=== PATIENT | male | born 1945 | race Caucasian/White ===

== ENCOUNTER → 2018-09-28 | Outpatient (CLI) | payer MEDICARE, OTHER ==
[~2018-09-28] MED LIST: ASPI-630 PO; DUTA0.5C PO; GABA-585 PO; GLUC1TAB71 PO; LANS15CA78 PO; LORA5TAB7 PO; MELO7.5T29 PO; PRIM1POW MC
--- NOTE | 2018-09-28 15:04 | RAD ---
CT of the chest without contrast, compared to similar study dated November 21, 2013 for fatigue for over 3 years, progressively worsening. Patient states that they experienced virus 3 years ago which lasted for 6 months, and that they have never fully recovered. Shortness of breath. TECHNIQUE: Contiguous helical 3 mm axial images are obtained from the thoracic inlet to the base of the diaphragm. IV contrast was withheld. Sagittal and coronal reformations are evaluated. FINDINGS: Extensive multifocal coronary artery calcifications are seen, most prominent in the proximal LAD. No suspicious mediastinal, hilar, or axillary lymphadenopathy is seen. Visualized upper abdominal organs are grossly unremarkable, though evaluation is limited by lack of IV contrast. No suspicious osseous abnormalities are evident. There are 2 subcentimeter nodules in the right lung which are stable and unchanged from the prior exam consistent with antecedent granulomatous disease. There is a new 3 mm nodule in the left lower lung seen on axial image #52, which was not definitely seen on the prior study, however its nonvisualization was likely due to its small size and volume averaging. Benignity is suspected especially given other benign stable pulmonary nodules. Several pleural-based nodular abnormalities are present in both lower lobes, left greater than right, and likely reflect subsegmental atelectasis. No suspicious nodules or masses are seen. No definite pneumonic infiltrates are seen. No pleural effusion or pneumothorax. Central airways are patent and grossly unremarkable. IMPRESSION: 1. No definite acute cardiopulmonary abnormality. Several small peripheral nodular pleural-based densities seen in both lower lobes are most consistent with subsegmental atelectasis, and less likely inflammatory or infectious. 2. Changes of antecedent granulomatous disease. There is a 3 mm nodule in the left lower lobe on axial image #52, which was not definitely visualized on the prior study, but nonetheless is likely benign. 3. Bulky calcified atherosclerosis of the coronary arteries, most notable involving the LAD. Electronically signed by: Main Rebollar MD (09/28/2018 3:01 PM) [id number]
== END | disposition home or self-care (01) ==
LOC: CT 10:24
PROVIDERS: ATTEND Nurse Practitioner Family
DX: I25.10 Atherosclerotic heart disease of native coronary artery without angina pectoris (principal); D71 Functional disorders of polymorphonuclear neutrophils; R91.1 Solitary pulmonary nodule
CPT/HCPCS: 71250

== ENCOUNTER → 2020-01-18 | Outpatient (CLI) | payer MEDICARE, OTHER ==
--- NOTE | 2020-01-18 14:14 | RAD ---
EXAM: DUAL ENERGY X-RAY ABSORPTIOMETRY (DEXA). HISTORY: Male age 70 or older. FINDINGS: The lowest measured T-score is -1.9 in the right femoral neck, based on a bone mineral density of 0.750 g/cm^2. Refer to the worksheets for full detail. No comparison examinations are available. IMPRESSION: Low bone mass. Bone mineral density yields a T-score between -1.0 and -2.5. Fracture risk is increased. FRAX was not calculated. METHODOLOGY: Dual energy x-ray absorptiometry was performed to measure bone mineral density. The following analysis is based on the 2019 Official Positions of the International Society for Clinical Densitometry: Measurements of the hips and the average of L1-L4 are preferred. When the spine and/or hip cannot be feasibly measured or interpreted, or in the setting of hyperparathyroidism, distal radial bone mineral density may be measured. The lumbar spine T-score is based on the average bone mineral density of L1-L4. In the setting of artifact or anatomic abnormality, some lumbar levels may be excluded, and the remaining levels used for calculation. A single lumbar level is not used for diagnosis, and if only a single level is available for assessment, another anatomic site will be used to assign a diagnosis. The hip T-score is based on the bone mineral density measurement of the femoral neck or total proximal femur of either side, whichever is lowest. Bilateral mean values are not used for diagnosis. The forearm T-score is derived from 33% of the distal radius of the nondominant forearm. For postmenopausal and perimenopausal women, and men age 50 or older, of all ethnic groups, T-scores are calculated through comparison of the current measurement with the NHANES III database standard for females aged 20-29 years. The lowest T-score of the evaluated anatomic sites is used to assign a diagnosis based on the World Health Organization densitometric classification. In premenopausal females and males younger than age 50, a Z-score is calculated based on population specific reference data for patient sex and self-reported ethnicity. Electronically signed by: Faizan Spaulding MD (01/18/2020 2:11 PM) [facility]
== END ==
LOC: DXRAD 12:57
PROVIDERS: ATTEND Specialist
DX: M85.89 Other specified disorders of bone density and structure, multiple sites (principal)
CPT/HCPCS: 77080

== ENCOUNTER 2020-11-07 06:54 | Inpatient (IN) | payer MEDICARE, OTHER ==
[2020-11-07] VITALS (8 sets, daily range): BP systolic 74–158; BP diastolic 49–81
[~2020-11-07] VITALS: Ht 180.3 cm; Wt 67.7 kg
[2020-11-07] MEDS ORDERED: ZOLP5TAB5 PO (07:43)
[2020-11-07] MEDS ORDERED: CRESTOR20 MG PO (07:43)
[2020-11-07] MEDS ORDERED: DONE5TAB7 PO (07:43)
[2020-11-07] MEDS ORDERED: TRAM50TA PO (07:43)
[2020-11-07] MEDS ORDERED: VITA1TAB31 PO (07:43)
[2020-11-07] MEDS ORDERED: GABA-586 PO (07:43)
[2020-11-07] MEDS ORDERED: TAMS0.4C97 PO (07:43)
[2020-11-07] MEDS ORDERED: MECO10005 PO (07:43)
[2020-11-07] MEDS ORDERED: ALEN70TA71 PO (07:43)
[2020-11-07] MEDS ORDERED: IV 1/2 NORMAL SALINE 1,000 ML IV SCH (07:45)
[2020-11-07 08:00] LABS: BASO % 0 % (0-3); EOS % 1 % (0-3); HEMATOCRIT 42.3 % (39.0-53.0); HEMOGLOBIN 14.3 g/dL (13.0-17.5); LYMPH # 0.2 x10^3/uL (1.0-4.8); LYMPH % 5 % (24-48); MEAN CORPUSCULAR HEMOGLOBIN 33 pg (25-35); MEAN CORPUSCULAR HGB CONC 34 g/dL (31-37); MEAN CORPUSCULAR VOLUME 96 fL (79-100); MONO # 0.1 x10^3/uL (0.0-1.1); MONO % 3 % (0-9); NEUT # 3.2 x10^3uL (1.8-7.7); NEUT % 92 % (31-73); PLATELET COUNT 145 x10^3/uL (140-400); RED BLOOD COUNT 4.42 x10^6/uL (4.30-5.70); RED CELL DISTRIBUTION WIDTH 13.3 % (11.5-14.5); WHITE BLOOD COUNT 3.5 x10^3/uL (4.0-11.0)
[2020-11-07 08:04] LABS: ALBUMIN 1.8 g/dL (3.4-5.0); ALBUMIN/GLOBULIN RATIO 0.4 (1.0-1.7); CALCIUM 8.2 mg/dL (8.5-10.1); CREATININE 0.9 mg/dL (0.7-1.3); GFR 82.5; POTASSIUM 4.4 mmol/L (3.5-5.1); TOTAL BILIRUBIN 0.6 mg/dL (0.2-1.0); TOTAL PROTEIN 6.3 g/dL (6.4-8.2)
--- NOTE | 2020-11-07 08:05 | NUR ---
NURSING NOTE ADMIT PT ADMIT TO ROOM 105. PT C/O WEAKNESS, FALLS, DECREASED APPETITE. PT STATES HE HAS HAD SOME CONFUSION THIS AM, THINKING HE HAD BREAKFAST BUT HE HAS NOT. PT HAS FELL X3 TIMES THIS AM SINCE 2 AM. ALSO FELL ON THURSDAY, EMS CAME TO EVALUATE HIM AND HE WAS UP FINE BY THE TIME THEY GOT THERE SO THEY DID NOT TAKE HIM IN. PT STATES HE STARTED TEGRETOL FOR NEUROPATHY AND TOOK IT FOR 3 DAYS AND ALL THESE SYMPTOMS STARTED. PT ALSO WAS CONSTIPATED AND WENT TO SEE DR BROOKS LAST WEEK AND WAS GIVEN MAG CITRATE AND NOW HAS BEEN HAVING SEVERAL BM'S SINCE. LBM 11/07/20. PT AT BEDSIDE DURING ADMISSION. DR BROOKS NOTIFIED OF ARRIVAL. SHAINA BECK.
[2020-11-07 09:18] LABS: % BANDS 33 % (0-9); % EOS 1 % (0-5); % LYMPHS 3 % (24-48); % METAS 4 % (0-0); % MONOS 3 % (0-10); % MYELOS 2 % (0-0); % SEGS 54 % (35-66)
[2020-11-07 09:19] LABS: PLT ESTIMATE ADEQUATE (ADEQUATE)
[2020-11-07] MEDS ORDERED: IV NORMAL SALINE 500ML 500 ML IV ONE (09:30)
[2020-11-07] MEDS: IV NORMAL SALINE 1,000ML 1,000 ML IV SCH ×2 (09:30→20:19)
[2020-11-07] MEDS ORDERED: ZOLPIDEM 5 MG TABLET. PO PRN (10:15)
[2020-11-07] MEDS ORDERED: traMADol 50 MG TABLET PO PRN ×2 (10:15→10:30)
[2020-11-07] MEDS: TAMSULOSIN 0.4 MG CAP.ER.24H. PO SCH (10:30)
[2020-11-07] MEDS ORDERED: VANCOMYCIN PER PHARMACY MC PRN (10:30)
--- NOTE | 2020-11-07 10:39 | RAD ---
EXAM: Chest, 2 views. HISTORY: Short of breath. Cough. COMPARISON: 09/28/2018 FINDINGS: 2 views of the chest are obtained. There is a masslike consolidation of the left upper lobe with sparing of the left lung apex. No pleural effusion or pneumothorax is seen. The heart is normal in size. There are healed rib fractures. IMPRESSION: Masslike consolidation of the left upper lobe. This can be better assessed with a CT. Electronically signed by: Monserrat Eduardo MD (11/07/2020 10:36 AM) [id number]
--- NOTE | 2020-11-07 10:49 | RAD ---
EXAM: Head CT without contrast. HISTORY: Fall. Weakness. TECHNIQUE: Computed tomographic images of the head were obtained without contrast. *One or more of the following individualized dose reduction techniques were utilized for this examina tion: 1. Automated exposure control. 2. Adjustment of the mA and/or kV according to patient size. 3. Use of iterative reconstruction technique. COMPARISON: None. FINDINGS: There is no acute or subacute extra-axial or intraparenchymal hemorrhage. There is no mass effect or midline shift. There is no hydrocephalus. There are areas of decreased attenuation within the cerebral white matter, nonspecific and likely rel ated to chronic small vessel disease. There is cerebral volume loss. There is a chronic appearing wit hin the left thalamus. The visualized portions of the orbits, paranasal sinuses and mastoid air cells are unremarkable. No s uspicious calvarial lesion is seen. IMPRESSION: 1. No acute intracranial finding. Note is made that MRI is more sensitive for acute infarction. 2. Bilateral cerebral white matter changes, likely due to chronic small vessel disease. 3. 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 Electronically signed by: Monserrat Eduardo MD (11/07/2020 10:46 AM) [id number]
--- NOTE | 2020-11-07 10:57 | RAD ---
EXAM: Abdomen and pelvis CT without intravenous contrast. HISTORY: Pain. TECHNIQUE: Computed tomographic images of the abdomen and pelvis were obtained without contrast. Mult iplanar reformatting was performed. *One or more of the following individualized dose reduction techniques were utilized for this examina tion: 1. Automated exposure control. 2. Adjustment of the mA and/or kV according to patient size. 3. Use of iterative reconstruction technique. COMPARISON: None. FINDINGS: Evaluation of the lower thorax demonstrates partial consolidation of the left lower lobe, p artially included on the [id number]. There is groundglass infiltrate within the left lower lobe th ere is left posterior dependent atelectasis. There are few tiny pleural-based and peripheral left low er lobe pulmonary nodules measuring up to 3 mm. There is a 2 mm nodule along the right pleural fissur e which is likely a benign fissural lymph node. There is a small hiatal hernia. No hepatic lesion is seen. The gallbladder is unremarkable. There is a pancreatic calcification which may be due to the sequela of prior pancreatitis. There is no acute pancreatitis. The spleen is unrem arkable. The adrenal glands are unremarkable. There is a 4 mm hypodense lesion along the lateral mid zone of the left kidney, possibly a hemorrhagic cyst. There is no gwen hydronephrosis. The appendix is likely absent. There is mild circumferential wall thickening involving segments of co william likely due to peristalsis. There is no convincing colitis. There is distal colonic diverticulosis . There is no diverticulitis. The bladder is unremarkable. The prostate is mildly enlarged. There is aortic and aortic branch vessel atherosclerosis. There is no lymphadenopathy. There are dege nerative changes involving the spine, primarily at L4-L5. IMPRESSION: 1. Partial left lower lobe consolidation, partially included on the [id number]. Correlate with a c hest radiograph or CT. 2. Colonic diverticulosis. 3. Tiny hyperdense lesion along the lateral left kidney, possibly a hemorrhagic cyst. Renal sonograph y may be helpful to exclude a solid lesion. 4. Tiny left lower lobe peripheral and pleural-based nodular opacities measuring up to 3 mm. Follow-u p can be performed in one year if there are risk factors for pulmonary neoplasm. Electronically signed by: Monserrat Eduardo MD (11/07/2020 10:54 AM) [id number]
[2020-11-07] MEDS ORDERED: VANCOMYCIN 1.75 GM in IV NORMAL SALINE 500ML 500 ML IV ONE (11:00)
[2020-11-07] MEDS: IPRATRPIUM/ALBUTEROL 0.5/2.5MG 3 ML NEBU. NEB SCH ×3 (12:30→20:17)
[2020-11-07 12:34] LABS: CLARITY,URINE CLEAR; COLOR,URINE AMBER
[2020-11-07 12:35] LABS: BACTERIA,URINE 0 /HPF (0-FEW); BILIRUBIN,URINE NEG (NEG); GLUCOSE,URINE NEG (NEG); NITRITE,URINE NEG (NEG); RBC,URINE 0 /HPF (0-2); UROBILINOGEN,URINE 0.2 mg/dL (0.2 mg/dL); WBC,URINE RARE /HPF (0-4)
[2020-11-07] MEDS ORDERED: ENOXAPARIN 40 MG/0.4 ML SYRINGE. SQ SCH (13:00)
[2020-11-07] MEDS: GABAPENTIN 300 MG CAPSULE. PO SCH ×2 (13:11→20:17)
[2020-11-07] MEDS ORDERED: IOHEXOL 350 MG/ML 100 ML VIAL. IV ONE (13:30)
--- NOTE | 2020-11-07 13:43 | EKG ---
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
--- NOTE | 2020-11-07 15:24 | NUR ---
Pharmacy Vancomycin Dosing Note S:Consulted to monitor and dose vancomycin started 11/07/20. O:LAUREL GOLD is a 75 year old M with Sepsis. Height: 5 feet, 11 inches Weight: 67.7 kg [place] Body Weight: Adjusted Body Weight: Dosing Weight: Actual Other Antibiotics: LEVOFLOXACIN 750MG Q48H LABS: Last BUN: Last Creatinine: 0.9 Creatinine Clearance: 62 ML/MIN Last WBC: 3.5 Last Procalcitonin: Tmax (past 24 hours): Microbiology: I/O: Drug Levels: Last level: on at Last dose given at Vancomycin Dosing: Loading Dose: 1750 mg x1 Dosing Weight: Actual Target Trough: 15-20 A: Based on: P: 1. Begin Vancomycin 1000 mg IV q12h 2. Follow up Trough level on 11/08/20 at 1230 3. Pharmacy will continue to monitor, follow and adjust therapy as needed. HERMES MEAD, 11/07/20 [id number]
--- NOTE | 2020-11-07 15:28 | RAD ---
CT chest with contrast. HISTORY: Fatigue, abnormal chest x-ray, positive T dimer, left lung mass or infiltrate CT scan the chest was done using 100 mL Omnipaque intravenous contrast. Thyroid is homogeneous. There are slightly prominent aortopulmonary window lobe nodes which could be reactive. No other mediastina l adenopathy is noted. There is no central bronchial occlusion on the left. There are bronchograms wi thin a densely consolidating pneumonia in the left upper lobe. Normal blood vessels run through the c onsolidation. An acute lobar pneumonia is suggested. Follow-up chest x-ray is recommended to clearing . A pulmonary embolus is not identified. Visualized portions of the liver and spleen are unremarkable. Adrenal glands are normal. Right lung i s clear. There is respiratory motion artifact. There is dorsal kyphosis. IMPRESSION: 1. Left upper lobe consolidating pneumonia with air bronchograms. 2. Negative for a pulmonary embolus. Follow-up study recommended. PQRS Compliance Statement: One or more of the following individualized dose reduction techniques were utilized for this examinat ion: 1. Automated exposure control 2. Adjustment of the mA and/or kV according to patient size 3. Use of iterative reconstruction technique Electronically signed by: Shayne Juarez MD (11/07/2020 3:26 PM) [facility]
--- NOTE | 2020-11-07 18:59 | HP ---
ADMIT DATE: 11/07/2020 HISTORY OF PRESENT ILLNESS: A 75-year-old male who has not been feeling well in the last 24 hours, he has fallen, was initially seen via EMS at his home and vital signs were stable. The patient; however, this morning was noted to be still extremely weak. The called and he was directly admitted to the hospital for generalized weakness as well as pneumonia, possible sepsis. The patient's blood pressure was extremely low at one time sitting up, any way it was down to 74/50, pulse rate of 128. He was tachycardic as noted with heart rates running well into the 100s. His oxygen saturation did drop down into the low 80s and was placed on 2 liters per nasal cannula. The patient was admitted with IV antibiotic therapy for sepsis, monitoring his diarrhea and fluid intake as well as his hypotension and other factors related to the sepsis itself. His past medical history includes that of neurological disorder. He has had a recent tremor. Procedure done on 10/15/2020 at and was placed on Tegretol, when some of the problems he noted began to occur; however, even after the Tegretol has been stopped for more than a week he still continued to feel weak and extremely tired. OTHER PAST MEDICAL HISTORY: Includes hypercholesterolemia, colonic polyps, osteoporosis, orthopedic surgery on the right knee replacement, influenza and COVID-19 vaccines up-to-date. ALLERGIES: THE PATIENT HAS ALLERGIES TO SULFA, CARBAMAZEPINE, CEPHALEXIN, NABUMETONE AND RANOLAZINE. SOCIAL HISTORY: No smoking, alcohol or drug use. The patient is a full code. FAMILY HISTORY: Father of leukemia. Mother had arthritic and thyroid dysfunction. His had sarcoid. HOME MEDICATIONS: Include Aricept 5 mg a day, tamsulosin 0.4. Aspirin 81, tramadol 80 mg, gabapentin 300 mg t.i.d., Ambien 5 mg at bedtime, B12, vitamin D, B12 complex, and Crestor 20 mg daily. REVIEW OF SYSTEMS: The patient denies any headaches, visual changes, blurred vision, double vision or any other neurological dysfunction. Does feel weak, very tired, has a mild cough, some mild shortness of breath and dyspnea. Otherwise, denies night sweats, abdominal pain. Does have nausea and has frequent bowel movements that are somewhat loose, but not quite watery either. He denies any problems with his extremities. Neurologically, he is baseline. PHYSICAL EXAMINATION: GENERAL: This is an ill-appearing white male, looking somewhat even cachectic. VITAL SIGNS: Blood pressure anywhere from 74/50-113/67 after boluses of normal saline. Pulses are running in the ____, respiratory rate 18, afebrile, oxygen saturation on 2 liters at 94, had gone down as low as 84% on room air. HEENT: Otherwise the patient is alert and oriented. Head was atraumatic, normocephalic. Eyes: PERRLA without jaundice. The mouth and throat were normal. NECK: Supple, without JVD, carotid bruits. No thyromegaly. LUNGS: Show diminished breath sounds on the left, upper and lower lobes. Some crackles noted. CARDIOVASCULAR: Tachycardic, but sinus rhythm. ABDOMEN: The patient's abdomen was soft, diffuse tenderness, but no rebounding or guarding. Positive bowel sounds, no hepatosplenomegaly. Stool hemoccult negative. EXTREMITIES: No clubbing, cyanosis, nor edema. NEUROLOGIC: The patient was alert and oriented. Speech is fluent, spontaneous, appropriate. Cranial nerves 2-12 grossly intact. LABORATORY DATA: Significant as white count was diminished to 3.5, hemoglobin 14 and 42. However, in the differential, there were 33 bands. The patient's chemistries showed an elevated lactic acid of 2.1. BNP of 205. Sugars in the 120-150 range. Sodium 133, potassium 4.4, BUN and creatinine 23, 0.9, albumin extremely low at 1.8. Liver enzymes were normal. Calcium slightly low at 8.2, but corrected for low albumin, probably within range. The patient's urine was nonspecific. Patient's imaging including a CTA left upper lobe consolidating pneumonia with air bronchograms negative for PE. The patient did have a positive D-dimer greater than 1. The patient's CT abdomen and pelvis noted partial left lower lobe consolidation, colonic diverticulosis, hyperdense lesion along the lateral left kidney, possibly hemorrhagic cyst, renal ultrasound to be ordered, left lower lobe peripheral pleural based nodular opacity, 3 mm, otherwise noted to have mild circumferential wall thickening involving segments of the colon, likely due to peristalsis possibly, but no convincing evidence of colitis. Otherwise, unremarkable in terms of history of sequelae of prior pancreatitis with calcifications of the pancreas, gallbladder was unremarkable. Spleen was unremarkable. Adrenal glands were normal as noted. IMPRESSION: Sepsis, left lobe pneumonia, community acquired, post-neurological procedure to stop his right hand tremor with left lobe new technology procedure done, hypotension, sinus tachycardia, possible colitis, diarrhea, acute respiratory distress, hyperglycemia. The patient will be started on vancomycin and Levaquin due to his allergies to other antibiotics. He does have a left lobe significant pneumonia with sepsis. He will be given additional IV fluids, monitoring his blood pressure extensively and make further adjustments as noted per results of labs, x-rays and clinical exams. SARBJIT BROOKS MD DR: ELSI/alexandru JOB#: [id number] / [id number]
[2020-11-08] VITALS (19 sets, daily range): BP systolic 77–128; BP diastolic 51–80
[2020-11-08] MEDS ORDERED: VANCOMYCIN 1 GM in IV NORMAL SALINE 250ML 250 ML IV SCH (01:00)
[2020-11-08] MEDS: IPRATRPIUM/ALBUTEROL 0.5/2.5MG 3 ML NEBU. NEB SCH ×2 (06:02→09:58)
--- NOTE | 2020-11-08 07:58 | NUR ---
IP note: Based on change in patient's condition in the past 24 hours, obtaining a COVID swab has been requested, as COVID may present as GI symptoms as well as respiratory symptoms. RN will discuss w/.
[2020-11-08] MEDS ORDERED: NOREPINEPHRINE BITARTRATE 8 MG in IV DEXTROSE 5% 250 ML IV PRN (08:30)
[2020-11-08 08:38] LABS: BASO % 0 % (0-3); EOS % 1 % (0-3); HEMATOCRIT 40.4 % (39.0-53.0); HEMOGLOBIN 13.7 g/dL (13.0-17.5); LYMPH # 0.3 x10^3/uL (1.0-4.8); LYMPH % 20 % (24-48); MEAN CORPUSCULAR HEMOGLOBIN 33 pg (25-35); MEAN CORPUSCULAR HGB CONC 34 g/dL (31-37); MEAN CORPUSCULAR VOLUME 96 fL (79-100); MONO % 1 % (0-9); NEUT # 1.2 x10^3uL (1.8-7.7); NEUT % 78 % (31-73); PLATELET COUNT 143 x10^3/uL (140-400); RED BLOOD COUNT 4.19 x10^6/uL (4.30-5.70); RED CELL DISTRIBUTION WIDTH 13.6 % (11.5-14.5)
[2020-11-08] MEDS ORDERED: AZITHROMYCIN 500 MG in IV NORMAL SALINE 250ML 250 ML IV ONE (09:00)
[2020-11-08] MEDS: TAMSULOSIN 0.4 MG CAP.ER.24H. PO SCH (09:00)
[2020-11-08] MEDS ORDERED: AZITHROMYCIN 500 MG in IV NORMAL SALINE 250ML 250 ML IV SCH (09:00)
[2020-11-08] MEDS: GABAPENTIN 300 MG CAPSULE. PO SCH (09:00)
[2020-11-08 09:09] LABS: CALCIUM 7.2 mg/dL (8.5-10.1); POTASSIUM 4.1 mmol/L (3.5-5.1)
--- NOTE | 2020-11-08 09:14 | RAD ---
XR CHEST 1V CLINICAL INDICATIONS: Reason: decreased O2 sats increased oxygen needs COMPARISON: October 2020. Findings: Worsening diffuse left lung consolidation is evident. It has progressed within the left low er lung zone. Right lung field is clear. No pneumothorax or pleural effusion is seen. The heart size, pulmonary vasculature, mediastinum and both marleny are stable. IMPRESSION: Worsening left lung consolidation. Electronically signed by: Oni Nair MD (11/08/2020 9:12 AM) [id number]
[2020-11-08 09:59] LABS: BGAS PH 7.42 (7.35-7.46)
[2020-11-08] MEDS ORDERED: PROPOFOL 20 ML IV ONE (12:00)
[2020-11-08] MEDS ORDERED: ETOMIDATE 40 MG/20 ML VIAL. INJ ONE (12:00)
[2020-11-08] MEDS ORDERED: SUCCINYLCHOLINE 200 MG/10 ML VIAL. IV ONE (12:00)
[2020-11-08] MEDS ORDERED: PROPOFOL 100 ML IV PRN (12:00)
[2020-11-08] MEDS ORDERED: MIDAZOLAM HCL PF 5 MG/5 ML VIAL. IV ONE ×2 (12:00)
[2020-11-08 12:02] LABS: WHITE BLOOD COUNT 1.6 x10^3/uL (4.0-11.0)
[2020-11-08] MEDS ORDERED: MIDAZOLAM HCL 50 MG in IV NORMAL SALINE 50ML 50 ML IV PRN (13:00)
--- NOTE | 2020-11-08 13:00 | NUR ---
Pt intubated per Steve orders, proceedure explained to pt and and both agreed to proceed. Dr Vargas to intubate, medications given per Alicia orders. Pt Tolerated well. Sedation medication ordered/administrated per Steve orders. Family updated that pt tolerated well, glasses and watch given to . Report given to SHAINA Quinones at [facility], Pt going to [facility] [id number] Pt left with EMS, Sedation and levophed running. Updated Transfer team of departure.
[2020-11-08 13:01] LABS: % ATYL 4 % (0-0); % BANDS 18 % (0-9); % EOS 2 % (0-5); % LYMPHS 28 % (24-48); % METAS 2 % (0-0); % MONOS 8 % (0-10); % MYELOS 7 % (0-0); % SEGS 31 % (35-66)
[2020-11-08 13:02] LABS: TOXIC GRANULATION PRESENT; TOXIC VACUOLATION PRESENT
[2020-11-08 13:07] LABS: PLT ESTIMATE ADEQUATE (ADEQUATE)
[2020-11-08 13:09] LABS: BURR CELLS PRESENT
--- NOTE | 2020-11-08 13:09 | RAD ---
AP chest. HISTORY: Intubated AP view was taken of the chest. There is an endotracheal tube in good position at the level the aorti c arch. There is diffuse consolidation of the left lung. There is a small left pleural effusion. Ther e has been no other change compared to the prior study. Right lung is clear. IMPRESSION: 1. Endotracheal tube in good position. 2. No other change. Electronically signed by: Shayne Juarez MD (11/08/2020 1:06 PM) [facility]
[2020-11-08 13:11] LABS: POLYCHROMASIA PRESENT
[2020-11-08] MEDS ORDERED: MIDAZOLAM HCL PF 5 MG/5 ML VIAL. ONE (13:45)
[2020-11-08] MEDS ORDERED: MEROPENEM 1 GM in IV NORMAL SALINE 100ML 100 ML IV SCH (14:00)
[2020-11-08] MEDS ORDERED: PROPOFOL 100 ML IV ONE (14:09)
--- NOTE | 2020-11-16 09:41 | DS ---
DATE OF DISCHARGE: 11/08/2020 HOSPITAL COURSE: The patient is a 75-year-old male who had been ill for the previous 24 hours to 36 hours. The patient had EMS come to his house and they said he was stable and did not take him to the emergency room. The following day, he was directly admitted to the hospital with pneumonia, sepsis and hypotension and a pulse rate of 128, blood pressure is 74/50. It was noted that the patient had a left upper lobe pneumonia and as a result of this, was started on sepsis protocol of double antibiotics of vancomycin and Levaquin. The patient in turn continues somewhat to deteriorate and the vancomycin was discontinued and we put him on meropenem as well as with azithromycin. The patient did not make very much in the way of progresses. Repeat chest x-ray showed deterioration, we made effort to transfer him. [facility] refused to take him. The patient's family did not want to go to [place] and consequently finally relied on to take the patient. The patient was intubated and transferred down to with the final diagnosis of sepsis, neutropenia, hyponatremia, respiratory failure. He did have a positive D-dimer. CTA showed left upper lobe consolidating pneumonia with air bronchograms. Otherwise, the patient showed deterioration with his repeat chest x-ray and in any case, the patient was transferred finally down to as noted on a ventilator to make further evaluation. Proper transition was made and made further evaluation on him down there at . So sepsis, pneumonia of unknown etiology. Blood cultures showed no growth. [place] DR: Maris TID: [id number]
== END 2020-11-08 14:10 | disposition short-term general hospital (02) | DRG 871 ==
LOC: 1 SOUTH 06:54 → ICU 11-08 08:45
PROVIDERS: ADMIT Family Medicine; ATTEND Family Medicine
PROC: 5A1935Z Respiratory Ventilation, Less than 24 Consecutive Hours (ICD-10-PCS; principal; 2020-11-08)
PROC: 0BH17EZ Insertion of Endotracheal Airway into Trachea, Via Natural or Artificial Opening (ICD-10-PCS; 2020-11-08)
DX: A41.9 Sepsis, unspecified organism (principal); J18.9 Pneumonia, unspecified organism; J96.90 Respiratory failure, unspecified, unspecified whether with hypoxia or hypercapnia; R64 Cachexia; E87.1 Hypo-osmolality and hyponatremia; E78.00 Pure hypercholesterolemia, unspecified; M81.0 Age-related osteoporosis without current pathological fracture; K52.9 Noninfective gastroenteritis and colitis, unspecified; D70.9 Neutropenia, unspecified; I95.9 Hypotension, unspecified; R73.9 Hyperglycemia, unspecified; Z96.651 Presence of right artificial knee joint; Z20.822 Contact with and (suspected) exposure to COVID-19; Z68.20 Body mass index [BMI] 20.0-20.9, adult; Z88.2 Allergy status to sulfonamides; Z88.8 Allergy status to other drugs, medicaments and biological substances; Z87.19 Personal history of other diseases of the digestive system; Z80.6 Family history of leukemia
CPT/HCPCS: 36415; 36600; 70450; 71045; 71046; 71275; 74176; 80048; 80053; 81001; 82550; 82803; 82947; 83605; 83690; 83880; 84484; 85007; 85025; 85379; 87040; 87426; 93005; 94002; 94640; J0330; J0456; J1650; J1956; J2185; J2250; J2704; J3370; J7030; J7040; J7050; Q9967; U0003; U0005